=== PATIENT | male | born 1975 | race African-American/Black ===

== ENCOUNTER 2022-06-11 04:03 | Emergency (ER) | payer OTHER, SELFPAY ==
[2022-06-11] MEDS ORDERED: Ketorolac Tromethamine 30 MG/ML VIAL ONE ×3 (04:25→04:26)
== END 2022-06-11 05:19 | disposition home or self-care (01) ==
LOC: CSHERS 04:03
DX: R07.81 Pleurodynia (principal); M25.511 Pain in right shoulder; M25.512 Pain in left shoulder; J45.909 Unspecified asthma, uncomplicated
CPT/HCPCS: 71045; 93005; 96372; J1885